=== PATIENT | male | born 1995 | race African-American/Black ===

== ENCOUNTER 2019-08-30 18:38 | Emergency (ER) | payer SELFPAY ==
[~2019-08-30] VITALS: Ht 167.6 cm; Wt 72.6 kg
[2019-08-30] MEDS ORDERED: methylPREDNISolone SOD SUCC PF 125 MG/2 ML VIAL. IV ONE (19:15)
[2019-08-30 19:38] LABS: BASO % 0 % (0-3); EOS # 0.2 x10^3/uL (0.0-0.7); EOS % 1 % (0-3); HEMATOCRIT 39.1 % (39.0-53.0); HEMOGLOBIN 13.4 g/dL (13.0-17.5); LYMPH # 1.1 x10^3/uL (1.0-4.8); LYMPH % 7 % (24-48); MEAN CORPUSCULAR HEMOGLOBIN 29 pg (25-35); MEAN CORPUSCULAR HGB CONC 34 g/dL (31-37); MEAN CORPUSCULAR VOLUME 84 fL (79-100); MONO # 1.5 x10^3/uL (0.0-1.1); MONO % 10 % (0-9); NEUT % 82 % (31-73); PLATELET COUNT 235 x10^3/uL (140-400); RED BLOOD COUNT 4.64 x10^6/uL (4.30-5.70); RED CELL DISTRIBUTION WIDTH 13.2 % (11.5-14.5); WHITE BLOOD COUNT 15.8 x10^3/uL (4.0-11.0)
[2019-08-30 19:55] LABS: CALCIUM 8.9 mg/dL (8.5-10.1); GFR 109.3; POTASSIUM 3.6 mmol/L (3.5-5.1)
[2019-08-30 20:00] LABS: ALBUMIN 3.7 g/dL (3.4-5.0); ALBUMIN/GLOBULIN RATIO 0.9 (1.0-1.7); TOTAL BILIRUBIN 0.6 mg/dL (0.2-1.0); TOTAL PROTEIN 7.7 g/dL (6.4-8.2)
[2019-08-30 20:09] LABS: % BANDS 1 % (0-9); % BASOS 2 % (0-3); % LYMPHS 9 % (24-48); % MONOS 6 % (0-10); % SEGS 82 % (35-66); PLT ESTIMATE ADEQUATE (ADEQUATE)
[2019-08-30] MEDS ORDERED: IOHEXOL 300 MG/ML 100ML VIAL. IV ONE (20:15)
--- NOTE | 2019-08-30 20:59 | RAD ---
Study: CT soft tissue neck with contrast INDICATION: Rule out left peritonsillar abscess. Sore throat. COMPARISON: None. TECHNIQUE: Helical CT imaging of the neck performed after the intravenous demonstration of 70 cc Omnipaque 300. Coronal and sagittal reformats were obtained. One or more of the following individualized dose reduction techniques were utilized for this examination: 1. Automated exposure control 2. Adjustment of the mA and/or kV according to patient size 3. Use of iterative reconstruction technique. FINDINGS: Asymmetric enlargement of the left palatine tonsil relative to the right with superimposed heterogeneous low-attenuation in this region. There is mass effect on the airway which is deviated to the right and narrowed with a nominal caliber of 3.5 mm as seen on image 69 series 2. The enlarged tonsil exhibits phlegmonous changes but there is no discrete rim-enhancing collection. The largest portion of this heterogeneous attenuation as seen on axial image 65 and sagittal image 39 measuring 1.6 cm transverse by 1.6 cm AP and extending craniocaudal by approximately 2.6 cm. Normal configuration of the epiglottis. The uvula is edematous and there are inflammatory changes extending along the soft palate which is thickened. Thin edema-like attenuation tracking in the prevertebral region from C2 through C4. No localized fluid collection this region. No inflammatory changes are seen to extend into the thoracic inlet/upper mediastinum. Unremarkable visualized intracranial contents and orbits. Asymmetric prominence of the left turbinates. Aplastic frontal sinus and underpneumatized mastoid air cells. Scattered ethmoidal air cell mucosal thickening on the left and right sphenoid sinus mucosal thickening. No layering fluid within the maxillary sinuses or sphenoid sinus. Odontogenic disease with scattered prominent dental caries as well as mandibular molar periapical lucencies Patent vessels of the neck. Scattered prominent left cervical chain lymph nodes without suppurative change. Incidental note made of developmental narrowing of the central canal. IMPRESSION: 1. Marked asymmetric prominence of the left palatine tonsil relative to the right with internal heterogeneous low-attenuation. This is most compatible with phlegmonous change/developing peritonsillar abscess though this is not well circumscribed at this time. The largest component of this abnormal attenuation measures approximately 1.6 cm transverse x 1.6 cm AP x 2.6 cm craniocaudal. In conjunction with an edematous uvula and soft palate, there is rightward effacement of the airway which is narrowed to a nominal transverse dimension of only 3.5 mm. Recommend correlation for symptoms of airway compromise. 2. Mild prevertebral edema-like attenuation from C2 through C4 without abscess or extension of inflammatory changes lower in the neck or into the thoracic inlet/upper mediastinum. 3. Additional less urgent observations as detailed in the body of the report. Electronically signed by: JENIFER MORENO MD (08/30/2019 8:56 PM) [facility]
[2019-08-30] MEDS ORDERED: CLINDAMYCIN 600MG PREMIX 50 ML IV ONE (21:30)
--- NOTE | 2019-08-30 21:44 | PHYS DOC ---
Past Medical History Past Medical History: No Pertinent History Past Surgical History: No Surgical History Alcohol Use: None Drug Use: None Adult General Chief Complaint Chief Complaint: SORE THROAT HPI HPI Patient is a 24 year old AA male who presents to the emergency department with complaints of a sore throat for the last 2 weeks. Patient states that today he noticed that the pain is mostly on the left side of his throat and he saw what he believed was a sore in the left back, and sore area. Patient states he feels like his voice is muffled and he feels like it is getting harder to breathe at this time. Patient denies any fever, body aches, cough, nausea, vomiting, diarrhea, or abdominal pain. Patient states that he has also noticed that swallowing is more difficult today. He denies any rash or recent exposure to strep pharyngitis. He currently rates his pain 8 out of 10 on the pain scale, he denies any alleviating factors. Review of Systems Review of Systems Constitutional: Denies fever or chills [] Eyes: Denies change in visual acuity, redness, or eye pain [] HENT: Denies nasal congestion; see HPI Respiratory: Denies cough or shortness of breath [] Cardiovascular: No additional information not addressed in HPI [] GI: Denies abdominal pain, nausea, vomiting, or diarrhea [] Musculoskeletal: Denies back pain or joint pain [] Integument: Denies rash or skin lesions [] Neurologic: Denies headache, focal weakness or sensory changes [] Complete systems were reviewed and found to be within normal limits, except as documented in this note. Current Medications Current Medications Current Medications Medications (Trade) Dose Ordered Sig/Darryl Start Time Stop Time Status Last Admin Dose Admin Clindamycin Phosphate 50 ml @ 100 mls/hr 1X ONCE 08/30/19 21:30 08/30/19 21:59 DC 08/30/19 21:27 100 MLS/HR Iohexol (Omnipaque 300 Mg/ml) 70 ml 1X ONCE 08/30/19 20:15 08/30/19 20:16 DC 08/30/19 20:11 70 ML Methylprednisolone Sodium Succinate (SOLU-Medrol 125MG VIAL) 125 mg 1X ONCE 08/30/19 19:15 08/30/19 19:49 DC 08/30/19 19:53 125 MG Allergies Allergies Allergies Coded Allergies Type Severity Reaction Last Updated Verified lavender (Lavandula angustifolia) Allergy Mild 08/30/19 Yes Physical Exam Physical Exam Constitutional: Well developed, well nourished, no acute distress, non-toxic appearance. [] HENT: Normocephalic, atraumatic, bilateral external ears normal, nose normal; severe swelling of left posterior pharynx with uvula deviation to the right, muffled voice noted. Eyes: PERRLA, EOMI, conjunctiva normal, no discharge. [] Neck: Normal range of motion, no stridor; left cervical chain lymph node enlargement with tenderness to palpation. Cardiovascular:Heart rate regular rhythm Lungs & Thorax: Bilateral breath sounds clear to auscultation [] Skin: Warm, dry, no erythema, no rash. [] Back: No tenderness Extremities: No cyanosis, ROM intact Neurologic: Alert and oriented X 3, no focal deficits noted. [] Psychologic: Affect normal, judgement normal, mood normal. [] Current Patient Data Vital Signs Vital Signs Date Time Temp Pulse Resp B/P (MAP) Pulse Ox O2 Delivery O2 Flow Rate FiO2 08/30/19 19:04 98.5 101 16 154/82 (106) 97 Room Air 98.5 Lab Values Laboratory Tests Test 08/30/19 19:30 08/30/19 21:42 White Blood Count 15.8 x10^3/uL (4.0-11.0) H Red Blood Count 4.64 x10^6/uL (4.30-5.70) Hemoglobin 13.4 g/dL (13.0-17.5) Hematocrit 39.1 % (39.0-53.0) Mean Corpuscular Volume 84 fL (79-100) Mean Corpuscular Hemoglobin 29 pg (25-35) Mean Corpuscular Hemoglobin Concent 34 g/dL (31-37) Red Cell Distribution Width 13.2 % (11.5-14.5) Platelet Count 235 x10^3/uL (140-400) Neutrophils (%) (Auto) 82 % (31-73) H Lymphocytes (%) (Auto) 7 % (24-48) L Monocytes (%) (Auto) 10 % (0-9) H Eosinophils (%) (Auto) 1 % (0-3) Basophils (%) (Auto) 0 % (0-3) Neutrophils # (Auto) 13.0 x10^3/uL (1.8-7.7) H Lymphocytes # (Auto) 1.1 x10^3/uL (1.0-4.8) Monocytes # (Auto) 1.5 x10^3/uL (0.0-1.1) H Eosinophils # (Auto) 0.2 x10^3/uL (0.0-0.7) Basophils # (Auto) 0.0 x10^3/uL (0.0-0.2) Segmented Neutrophils % 82 % (35-66) H Band Neutrophils % 1 % (0-9) Lymphocytes % 9 % (24-48) L Monocytes % 6 % (0-10) Basophils % 2 % (0-3) Platelet Estimate Adequate (ADEQUATE) Sodium Level 140 mmol/L (136-145) Potassium Level 3.6 mmol/L (3.5-5.1) Chloride Level 104 mmol/L (98-107) Carbon Dioxide Level 28 mmol/L (21-32) Anion Gap 8 (6-14) Blood Urea Nitrogen 13 mg/dL (8-26) Creatinine 1.0 mg/dL (0.7-1.3) Estimated GFR (Cockcroft-Gault) 109.3 BUN/Creatinine Ratio 13 (6-20) Glucose Level 95 mg/dL (70-99) Calcium Level 8.9 mg/dL (8.5-10.1) Total Bilirubin 0.6 mg/dL (0.2-1.0) Aspartate Amino Transferase (AST) 21 U/L (15-37) Alanine Aminotransferase (ALT) 26 U/L (16-63) Alkaline Phosphatase 63 U/L (46-116) Total Protein 7.7 g/dL (6.4-8.2) Albumin 3.7 g/dL (3.4-5.0) Albumin/Globulin Ratio 0.9 (1.0-1.7) L Lactic Acid Level 0.7 mmol/L (0.4-2.0) Laboratory Tests 08/30/19 19:30 Laboratory Tests 08/30/19 19:30 EKG EKG [] Radiology/Procedures Radiology/Procedures PROCEDURE: CT SOFT TISSUE NECK W/CONTRAST Study: CT soft tissue neck with contrast INDICATION: Rule out left peritonsillar abscess. Sore throat. COMPARISON: None. TECHNIQUE: Helical CT imaging of the neck performed after the intravenous demonstration of 70 cc Omnipaque 300. Coronal and sagittal reformats were obtained. One or more of the following individualized dose reduction techniques were utilized for this examination: 1. Automated exposure control 2. Adjustment of the mA and/or kV according to patient size 3. Use of iterative reconstruction technique. FINDINGS: Asymmetric enlargement of the left palatine tonsil relative to the right with superimposed heterogeneous low-attenuation in this region. There is mass effect on the airway which is deviated to the right and narrowed with a nominal caliber of 3.5 mm as seen on image 69 series 2. The enlarged tonsil exhibits phlegmonous changes but there is no discrete rim-enhancing collection. The largest portion of this heterogeneous attenuation as seen on axial image 65 and sagittal image 39 measuring 1.6 cm transverse by 1.6 cm AP and extending craniocaudal by approximately 2.6 cm. Normal configuration of the epiglottis. The uvula is edematous and there are inflammatory changes extending along the soft palate which is thickened. Thin edema-like attenuation tracking in the prevertebral region from C2 through C4. No localized fluid collection this region. No inflammatory changes are seen to extend into the thoracic inlet/upper mediastinum. Unremarkable visualized intracranial contents and orbits. Asymmetric prominence of the left turbinates. Aplastic frontal sinus and underpneumatized mastoid air cells. Scattered ethmoidal air cell mucosal thickening on the left and right sphenoid sinus mucosal thickening. No layering fluid within the maxillary sinuses or sphenoid sinus. Odontogenic disease with scattered prominent dental caries as well as mandibular molar periapical lucencies Patent vessels of the neck. Scattered prominent left cervical chain lymph nodes without suppurative change. Incidental note made of developmental narrowing of the central canal. IMPRESSION: 1. Marked asymmetric prominence of the left palatine tonsil relative to the right with internal heterogeneous low-attenuation. This is most compatible with phlegmonous change/developing peritonsillar abscess though this is not well circumscribed at this time. The largest component of this abnormal attenuation measures approximately 1.6 cm transverse x 1.6 cm AP x 2.6 cm craniocaudal. In conjunction with an edematous uvula and soft palate, there is rightward effacement of the airway which is narrowed to a nominal transverse dimension of only 3.5 mm. Recommend correlation for symptoms of airway compromise. 2. Mild prevertebral edema-like attenuation from C2 through C4 without abscess or extension of inflammatory changes lower in the neck or into the thoracic inlet/upper mediastinum. 3. Additional less urgent observations as detailed in the body of the report.[] Course & Med Decision Making Course & Med Decision Making Pertinent Labs and Imaging studies reviewed. (See chart for details) Patient is 24-year-old male who presented to the emergency department with complaints of worsening sore throat symptoms. On exam concern was for a peritonsillar abscess on the left. The patient was given her 25 mg of Solu-Medrol IV. A CT soft tissue neck was ordered that revealed: 1. Marked asymmetric prominence of the left palatine tonsil relative to the right with internal heterogeneous low-attenuation. This is most compatible with phlegmonous change/developing peritonsillar abscess though this is not well circumscribed at this time. The largest component of this abnormal attenuation measures approximately 1.6 cm transverse x 1.6 cm AP x 2.6 cm craniocaudal. In conjunction with an edematous uvula and soft palate, there is rightward effacement of the airway which is narrowed to a nominal transverse dimension of only 3.5 mm. Recommend correlation for symptoms of airway compromise. 2. Mild prevertebral edema-like attenuation from C2 through C4 without abscess or extension of inflammatory changes lower in the neck or into the thoracic inlet/upper mediastinum. 3. Additional less urgent observations as detailed in the body of the report. Patient was given 600 mg of clindamycin IV, his vital signs were stable and his airway remained patent in the emergency room. [id number] with Yakov at transfer center about need for ENT evaluation [id number]- Per Yakov at [facility] is accepting physician at , will transfer pt to the ER. [] Dragon Disclaimer Dragon Disclaimer This electronic medical record was generated, in whole or in part, using a voice recognition dictation system. Departure Departure Impression: Primary Impression: Peritonsillar abscess Disposition: 02 TRANSFER T-[facility] (to [facility]) Condition: STABLE Referrals: NO PCP (PCP) PHYLICIA QUIGLEY [employer] Aug 30, 2019 21:44
[2019-08-30 22:16] VITALS: BP 131/86
== END 2019-08-30 22:25 | disposition short-term general hospital (02) ==
LOC: ER 18:38
DX: J36 Peritonsillar abscess (principal); Z91.048 Other nonmedicinal substance allergy status; Z79.899 Other long term (current) drug therapy
CPT/HCPCS: 36415; 70491; 80053; 83605; 85007; 85025; 96365; 96375; 99285; J2930; J3490; Q9967